=== PATIENT | male | born 1970 | race Caucasian/White ===

== ENCOUNTER 2024-08-03 10:26 | Emergency (ER) | payer MEDICAID ==
[~2024-08-03] VITALS: Ht 172.7 cm; Wt 77.3 kg
[2024-08-03 10:30] VITALS: BP 145/94; PULSE 96; RESP 18; TEMP 98.1; O2SAT 99
[2024-08-03] MEDS ORDERED: MELO-107 PO (10:33)
[2024-08-03] MEDS: OxyCODONE HCL/ACETAMINOPHEN 5-325 MG TABLET PO ONE (11:53)
[2024-08-03] MEDS: LIDOCAINE 5% TRANSDERMAL PATCH TD ONE (11:55)
== END 2024-08-03 13:24 | disposition home or self-care (01) ==
LOC: EMS 10:29
DX: M79.604 Pain in right leg (principal); F17.210 Nicotine dependence, cigarettes, uncomplicated; Z88.2 Allergy status to sulfonamides; Z59.00 Homelessness unspecified
CPT/HCPCS: 99283